=== PATIENT | female | born 1950 | race Caucasian/White ===

== ENCOUNTER 2019-06-28 15:32 | Observation (INO) ==
[2019-06-28] MEDS ORDERED: ZOFRAN IV PRN (17:37)
[2019-06-28] MEDS ORDERED: NS 1,000 ML IV SCH (17:45)
[2019-06-28 18:24] LABS: BASO# 0.02 X1000 (0.0-0.2); BASO% 0.3 % (0.0-0.8); EOS# 0.07 X1000 (0.0-0.7); HEMATOCRIT 38.9 % (37.0-47.0); HEMOGLOBIN 11.9 g/dL (12.0-16.0); LYMPH# 2.09 X1000 (1.2-3.4); LYMPH% 30.4 % (20.5-51.1); MCH 25.2 PG (27-31); MCHC 30.6 g/dL (33-37); MCV 82.4 FL (81-99); MONO# 0.42 X1000 (0.11-0.59); MONO% 6.1 % (1.7-9.3); MPV 10.9 FL (7.4-10.4); NEUT# 4.27 X1000 (1.4-6.5); NEUT% 62.2 % (42.2-75.2); PLT 214 X1000 (130-400); RBC 4.72 XMIL (4.2-5.4); WBC 6.87 X1000 (4.8-10.8)
[2019-06-28 18:49] LABS: CALCIUM 9.2 mg/dL (8.8-10.2); CREATININE 1.2 mg/dL (0.5-0.9); POTASSIUM 4.2 mmol/L (3.5-5.1)
[2019-06-28] MEDS: NORVASC PO SCH (18:51)
[2019-06-28] MEDS: NS 1,000 ML IV SCH (18:52)
--- NOTE | 2019-06-28 21:25 | HISTORY AND PHYSICAL ---
CHIEF COMPLAINT: Dizziness. HISTORY OF PRESENT ILLNESS: The patient is a 68-year-old female with history of hypertension, diabetes, peripheral tear disease, hyperlipidemia, GERD, depression. She was washing clothes earlier when she had sudden onset of dizziness, followed by nausea, vomiting, diaphoresis. She did not have any shortness of breath or chest pain or palpitations. She denies fever, chills, cough, dyspnea, chest pain. Denies sick contacts. She called EMS and was brought to [facility]. On evaluation there, she was given Zofran and fluids with resolution of her symptoms. Initial evaluation there was largely unremarkable aside from minimally elevated creatinine at 1.1 with unclear baseline, and EKG with some nonspecific ST changes and prolonged QTc of 578. Troponins were negative x2. Chest x-ray and CT head were unremarkable. Urinalysis was reportedly possibly suggestive of UTI, but patient denies dysuria, lower abdominal pain, or other symptom of urinary tract infection. At [place], they discussed with Cardiology at [facility] who recommended echocardiogram, but they did not have anyone that could read an echocardiogram for the next several days, so she was transferred here for further cardiac evaluation. She is currently asymptomatic. She reports compliance with her medications, but states that this episode occurred before she took her Lantus this morning, so she did not take that. She does state that they give her insulin at [facility]. She denies any previous history of cardiac issues. She states initially at [facility],, sitting up or attempting to stand brought on her lightheadedness, but after fluid resuscitation there, that stopped. The patient has been on Celexa for approximately 5 years since the of her . States she was depressed after that, but has done well since then. The patient states she does not always eat like she is supposed to, but denies any recent significant decrease in p.o. intake or fluid loss. REVIEW OF SYSTEMS: A 12 point review of systems negative except as per history. ALLERGIES: No known drug allergies. PAST MEDICAL HISTORY: 1. Hypertension. 2. Diabetes. 3. Peripheral arterial disease. 4. Depression. 5. Hyperlipidemia. 6. GERD. SURGICAL HISTORY: 1. Kidney stone removal. 2. . 3. Tubal ligation. 4. Benign breast cyst removal. SOCIAL HISTORY: Patient denies tobacco, alcohol, or illicit drug use. FAMILY HISTORY: Father from [place]. Mother from COPD. LABS: Labs here are pending, but labs sent from [facility] are significant only for hyperglycemia with glucose in the 250s without evidence of DKA, mildly elevated creatinine at 1.1. IMAGING: Imaging here pending, but reports sent from [facility] show unremarkable chest x- ray and CT head. PHYSICAL EXAMINATION: VITAL SIGNS: Heart rate in the 80s, respiratory rates in the high teens, temperature pending. Blood pressure systolic in the 160s. GENERAL: No acute distress. HEENT: Normocephalic. Slightly dry mucous membranes. No cervical adenopathy. No JVD. CARDIOVASCULAR: Regular rate and rhythm. No murmurs noted. PULMONARY: Clear to auscultation bilaterally. ABDOMEN: Soft, nontender, nondistended. Bowel sounds positive. EXTREMITIES: Peripheral pulses intact. No clubbing, cyanosis, or edema. NEUROLOGIC: Cranial nerves grossly intact. No focal deficits identified. No dizziness when patient was sat up here. PSYCHIATRIC: Normal mood and affect. Awake, alert, oriented x3. SKIN: Warm, dry. No new appearing rashes noted. ASSESSMENT AND PLAN: 1. Dizziness, lightheadedness, prolonged QT, nonspecific ST changes on electrocardiogram. Patient with episode of dizziness. Troponin negative x2 at outside facility. We will get a 3rd troponin here. Will repeat electrocardiogram. Rhythm here is normal sinus on the monitor, but will definitely monitor on telemetry, check thyroid studies, obtain echocardiogram, and ask Cardiology to see. Given her significantly prolonged QTc, will hold her home citalopram as it sounds like she had more of a complicated grief reaction than major depression and it was several years ago; she can likely remain off of it. Recheck chest x-ray in the morning. 2. Elevated creatinine. No baseline to compare to, so uncertain if this is acute or chronic. Creatinine was only mildly elevated at 1.1. She certainly has risk factors for mild chronic kidney disease, but we will go ahead and give some gentle fluids overnight. Check urinalysis. 3. Diabetes. The patient takes Lantus 20 units daily at home. Will do Lantus 15 units and sliding scale here. Will check A1c. 4. Hyperlipidemia. Will restart patient's home statin once medications are reconciled. 5. Gastroesophageal reflux disease. Continue proton pump inhibitor. 6. Peripheral arterial disease. Continue daily aspirin. 7. Nausea and vomiting, now resolved, but continue fluids and Zofran available as needed. 8. Disposition. Will place patient in Observation, finish cardiac workup as above, let Cardiology evaluate her. If workup is largely unremarkable, may be able to be discharged tomorrow. If Cardiology finds concerning findings, then may have to stay here until Monday for stress test.
[2019-06-28] MEDS: HUMALOG SUBQ SCH (22:58)
[2019-06-28] MEDS: TYLENOL PO PRN (23:07)
[2019-06-29 05:49] LABS: URINE SOURCE CLEAN CATCH
[2019-06-29 05:55] LABS: BILIRUBIN URINE NEGATIVE (NEGATIVE); BLOOD URINE NEGATIVE (NEGATIVE); COLOR YELLOW; GLUCOSE URINE NEGATIVE (NEGATIVE); KETONE URINE NEGATIVE (NEGATIVE); LEUKOCYTES URINE MODERATE (NEGATIVE); NITRITE URINE NEGATIVE (NEGATIVE); PROTEIN URINE NEGATIVE (NEGATIVE); SP GRAVITY URINE 1.013; TURBIDITY URINE CLEAR (CLEAR); UROBILINOGEN URINE NORMAL (NORMAL)
[2019-06-29 05:56] LABS: UR EPITHELIAL CELLS <10 /HPF (<10); URINE BACTERIA NEGATIVE /HPF; URINE RBC <10 /HPF (<10); URINE WBC 20-40 /HPF (<10)
--- NOTE | 2019-06-29 06:24 | Diag Imaging Result Doc PS360 ---
EXAM: CHEST-PORTABLE HISTORY: cough TECHNIQUE: Single view COMPARISON: None. FINDINGS: Poor inspiratory effort. The heart is enlarged. Mild increased interstitial markings in the medial right base. The pleural effusions identified. IMPRESSION: Cardiac megaly with basilar infiltrates Electronically signed by Erik Reeves 06/29/2019 6:22 AM
[2019-06-29 06:30] LABS: BASO# 0.01 X1000 (0.0-0.2); BASO% 0.2 % (0.0-0.8); EOS# 0.07 X1000 (0.0-0.7); EOS% 1.2 % (0.0-10.0); HEMATOCRIT 37.5 % (37.0-47.0); HEMOGLOBIN 11.3 g/dL (12.0-16.0); LYMPH# 2.02 X1000 (1.2-3.4); LYMPH% 33.9 % (20.5-51.1); MCHC 30.1 g/dL (33-37); MONO# 0.41 X1000 (0.11-0.59); MONO% 6.9 % (1.7-9.3); MPV 11.4 FL (7.4-10.4); NEUT# 3.44 X1000 (1.4-6.5); NEUT% 57.8 % (42.2-75.2); PLT 193 X1000 (130-400); RBC 4.52 XMIL (4.2-5.4); RDW 14.1 % (11.5-14.5); WBC 5.95 X1000 (4.8-10.8)
[2019-06-29 06:33] LABS: HEMOGLOBIN A1C 7.9 % (4.8-6.0)
[2019-06-29] MEDS: NS 1,000 ML IV SCH ×2 (06:35→14:20)
[2019-06-29] MEDS: HUMALOG SUBQ SCH ×4 (06:36→21:22)
[2019-06-29] MEDS: PROTONIX PO SCH (06:36)
[2019-06-29 07:01] LABS: CALCIUM 8.7 mg/dL (8.8-10.2); CREATININE 1.1 mg/dL (0.5-0.9); POTASSIUM 4.1 mmol/L (3.5-5.1)
[2019-06-29 07:04] LABS: FREE T4 1.12 ng/dL (0.93-1.70); TSH 2.02 uIUmL (0.27-4.20)
[2019-06-29] MEDS ORDERED: PROTONIX PO SCH (09:00)
[2019-06-29] MEDS ORDERED: MOTRIN PO SCH (09:00)
[2019-06-29] MEDS ORDERED: GLUCOPHAGE XR PO SCH (09:00)
[2019-06-29] MEDS ORDERED: HYDROCHLOROTHIAZIDE PO SCH (09:00)
[2019-06-29] MEDS: NORVASC PO SCH (09:01)
[2019-06-29] MEDS: PRINIVIL PO SCH (09:01)
[2019-06-29] MEDS: ASPIRIN PO SCH (09:01)
[2019-06-29] MEDS: LANTUS INSULIN SUBQ SCH (09:02)
--- NOTE | 2019-06-29 12:48 | ECHO REPORT ---
ORDER DATE: 06/28/2019 MEASUREMENTS: Septal thickness 1.0, left ventricular internal diastolic 5.0, posterior wall thickness 0.9, left ventricular internal diameter in systole 3.4, aortic root 2.8, left atrium 3.3. SUMMARY: 1. Technically difficult study due to limited acoustic window quality. 2. Very mild sclerosis of trileaflet aortic valve demonstrated with normal aortic valve opening evident. Peak gradient across the aortic valve is less than 10 mmHg. There is trace aortic regurgitation. Mitral and tricuspid valves are without evidence of structural abnormality while pulmonic valve is not well demonstrated. There is very mild mitral regurgitation and mild tricuspid regurgitation. The estimated systolic PA pressure by Doppler is 35 to 40 mmHg suggesting mild pulmonary hypertension. The aortic root is normal in size. 3. Normal left ventricular dimensions demonstrated. Estimated left ejection fraction appears to be at least 60%. No regional wall motion abnormalities are evident. Left atrium, right atrium, right ventricle are normal size with normal right ventricular systolic function. 4. No pericardial effusion. 5. Appearance of inferior vena cava suggests normal central venous pressure. CONCLUSIONS: 1. Technically difficult study. 2. Very mild aortic valve sclerosis without stenosis with trace aortic regurgitation. 3. Very mild mitral regurgitation. 4. Mild tricuspid regurgitation with mild pulmonary hypertension by Doppler. 5. Normal left ventricular systolic function without wall motion abnormality evident. cc: Ryan Plasencia MD
[2019-06-29] MEDS: LOVENOX SUBQ SCH (13:44)
[2019-06-29] MEDS: LOPRESSOR PO SCH ×2 (13:44→20:12)
--- NOTE | 2019-06-29 15:19 | PROGRESS NOTE ---
DATE: 06/29/2019 SUBJECTIVE: The patient notes that her dizziness has improved, in fact stating that she is feeling well. PHYSICAL EXAMINATION: Temperature 97.9, pulse 79, respiratory rate 18, BP 142/69.General: Patient is awake, alert. She is in no distress. She notes that she was able to ambulate yesterday [*]. HEENT: Normocephalic. Neck: Supple. Cardiovascular: Regular rate and rhythm. No murmurs. Chest: Clear. Abdomen: Soft. Neuro: Moves all extremities. ASSESSMENT: 1. Dizziness, appears resolved. 2. Diabetes with an A1c of 7.9. 3. Others. PLAN: We will continue patient in the hospital today. Cardiology was consulted. We will allow them to eval and if okay, will discharge her home. cc: Oniel Snyder MD
--- NOTE | 2019-06-29 16:53 | CONSULTATION ---
DATE OF CONSULTATION: 06/29/2019 IMPRESSION: 1. Episode of near syncope in diabetic with markedly abnormal ECG suspicious for significant coronary obstructive lesions in left anterior descending coronary. Consider unstable angina. 2. Exertional fatigue possibly angina equivalent. 3. Hypertension for approximately 10 years. 4. Type 2 diabetes mellitus requiring insulin for control. 5. Peripheral vascular disease. 6. Hyperlipidemia. 7. Depression. RECOMMENDATIONS: 1. Initiate beta lucretia. 2. Continue aspirin daily. 3. Add Lovenox 1 mg/kg subcutaneously q.12. 4. Follow up echocardiography. 5. Intensify statin therapy by switching to atorvastatin 40 mg. 6. Moved to PVC unit. 7. Given clinical presentation with strikingly abnormal ECG suspicious for proximal left anterior descending stenosis, favor definitive evaluation with cardiac catheterization, selective coronary angiography. The rationale for this approach and the potential hazards were discussed with the patient and she wished to proceed. Patient also made aware that she may require angioplasty/stenting which would require transfer to [facility] or other interventional level facility. HISTORY: This 68-year-old white female with past history of hypertension, type 2 diabetes mellitus requiring insulin for control, peripheral vascular disease, hyperlipidemia, and depression was admitted on transfer from [facility] in [place] for further evaluation of near syncopal episode and strikingly abnormal ECG. She relates that yesterday morning around 10:30 she was loading the washing machine in a utility building near her house. She turned to go back in house and suddenly became lightheaded/dizzy. She struggled to get back to her porch and sat down on the porch swing. She subsequently had vomiting and felt sweaty all over. Symptoms lasted perhaps 10 minutes or so and resolved spontaneously. She denies any chest pain or palpitations. She was taken to emergency room in [place] and admitted for evaluation. ECG was strikingly abnormal and actually became more abnormal overnight with anterolateral ST-T changes. Q-T interval is prolonged. However serial cardiac enzymes reported negative. She was subsequently transferred here for further evaluation as there were no beds available in [place]. She denies chest pain, but relates she has had unusual tendency for fatigue with physical activity. There has been no orthopnea or palpitations. She never really passed completely out. PAST MEDICAL HISTORY: 1. Hypertension for approximately 10 years. 2. Type 2 diabetes mellitus requiring insulin for control. 3. Peripheral vascular disease. 4. Obesity. 5. Hyperlipidemia. 6. Depression. 7. Gastroesophageal reflux disease. PAST SURGICAL HISTORY: Includes previous removal of kidney stone, section, tubal ligation, and removal of benign breast cyst. ALLERGIES: She has no known drug allergies. SOCIAL HISTORY: She is a nonsmoker. She does not use alcohol. FAMILY HISTORY: Is positive for coronary disease. REVIEW OF SYSTEMS: Pulmonary: Noncontributory beyond history of present illness. Gastrointestinal: Noncontributory beyond history of present illness. Constitutional: Negative. Remainder review of systems negative/noncontributory beyond history present illness with 14 total systems reviewed. PHYSICAL EXAMINATION: Reveals an obese, older white female in no distress on room air.Vital signs: Blood pressure 128/55, heart rate 69, oxygen saturation 99% on room air. HEENT: Extraocular movements intact. Mucous membranes moist. Neck: Supple without jugular venous distention. There are no carotid bruits. Chest: Clear to auscultation. Cardiac: Reveals a regular rate and rhythm without appreciable murmur or gallop. Abdomen: Soft. Bowel sounds are normal. Extremities: Without edema. Neurologic: Reveals her to be alert and fully oriented. Speech is fluent. She moves all 4 extremities equally well. Skin: Warm, dry. Psych: Reveals mood to be appropriate. DATA: Initial 12 lead EKG demonstrates sinus rhythm and anterolateral ST and T-wave abnormality, consider anterolateral ischemia. Followup ECG demonstrates sinus rhythm and more striking anterolateral ST and T-wave abnormality with significant QT interval prolongation. Consider anterolateral ischemia. LABORATORY DATA: Includes white blood cell count 5.95, hematocrit 37.5, hemoglobin 11.3, platelet count 193,000. Sodium 137, potassium 4.1, chloride 101, carbon dioxide 23, BUN 21, creatinine 1.1, glucose 171, troponin T less than 0.01. TSH 2.02, free T4 1.12. cc: Ryan Plasencia MD
--- NOTE | 2019-06-29 17:36 | EKG Report ---
Test Performed on : 06/29/2019 1:28:39 PM Test Reason : near syncope Blood Pressure : / mmHG Vent. Rate : 081 BPM Atrial Rate : 081 BPM P-R Int : 146 ms QRS Dur : 104 ms QT Int : 486 ms P-R-T Axes : 061 100 152 degrees QTc Int : 564 ms Critical Test Result: Long QTc Normal sinus rhythm. Rightward axis ST & T wave abnormality, consider anterolateral ischemia Prolonged QT Abnormal ECG When compared with ECG of 29-JUN-2019 06:38, (Unconfirmed) premature ventricular complexes. are no longer present QT has shortened Unconfirmed Result
--- NOTE | 2019-06-29 17:37 | EKG Report ---
Test Performed on : 06/29/2019 06:38:57 AM Test Reason : dizziness Blood Pressure : / mmHG Vent. Rate : 076 BPM Atrial Rate : 076 BPM P-R Int : 152 ms QRS Dur : 110 ms QT Int : 566 ms P-R-T Axes : 062 106 155 degrees QTc Int : 636 ms Critical Test Result: Long QTc Sinus rhythm. with occasional premature ventricular complexes. Rightward axis ST & Marked T wave abnormality, consider anterolateral ischemia Prolonged QT Abnormal ECG No previous ECGs available Unconfirmed Result
[2019-06-29] MEDS: LIPITOR PO SCH (20:12)
[2019-06-29] MEDS ORDERED: PRAVACHOL PO SCH (21:00)
[2019-06-29] MEDS ORDERED: CELEXA PO SCH (21:00)
[2019-06-29] MEDS ORDERED: LANTUS INSULIN SUBQ SCH ×2 (21:00)
[2019-06-29] MEDS: CELEXA PO SCH (21:22)
[2019-06-30] MEDS: NS 1,000 ML IV SCH ×4 (00:22→15:53)
[2019-06-30] MEDS: LOVENOX SUBQ SCH ×2 (00:22→13:20)
[2019-06-30] MEDS: PROTONIX PO SCH (06:41)
[2019-06-30] MEDS: NORVASC PO SCH (09:05)
[2019-06-30] MEDS: LANTUS INSULIN SUBQ SCH (09:05)
[2019-06-30] MEDS: ASPIRIN PO SCH (09:05)
[2019-06-30] MEDS: LOPRESSOR PO SCH ×2 (09:05→21:48)
[2019-06-30] MEDS: PRINIVIL PO SCH (09:05)
[2019-06-30] MEDS: HUMALOG SUBQ SCH ×4 (09:06→21:49)
[2019-06-30 12:14] LABS: INR 1.04; PROTIME 13.7 Seconds (11.0-16.0)
--- NOTE | 2019-06-30 15:13 | PROGRESS NOTE ---
DATE: 06/30/2019 SUBJECTIVE: Patient continues without chest discomfort or dyspnea. There has been no fatigue or lightheadedness. OBJECTIVE: Vitals: Blood pressure 146/65, heart rate 62, oxygen saturation 96% on room air. Neck: There is no significant jugular venous distention. Chest: Clear to auscultation. Cardiac: Reveals a regular rate and rhythm without appreciable murmur or gallop. Extremities: There is no evidence of peripheral edema. LABORATORY DATA: Includes a pro-time 13.7, INR 1.04, PTT 30.5. IMPRESSION: 1. Recent near-syncope in diabetic with markedly abnormal ECG suspicious for significant coronary obstructive lesions in the left anterior descending coronary. Consider the possibility of associated arrhythmias such as polymorphic ventricular tachycardia or transient global left ventricular dysfunction related to multivessel coronary atherosclerosis. 2. Exertional fatigue, possible anginal equivalent. 3. Hypertension for approximately 10 years. 4. Type 2 diabetes mellitus for approximately 10 years requiring insulin for control. 5. Peripheral vascular disease. 6. Hyperlipidemia. 7. Depression. RECOMMENDATIONS: 1. Continue beta lucretia. 2. Continue aspirin daily. 3. Favor definitive evaluation of patient's clinical presentation with left heart catheterization and selective coronary angiography. The rationale for this approach and potential hazards were discussed with the patient, and she wished to proceed. Possible need for transfer to [facility] in the event coronary angioplasty/stenting is needed was also discussed with the patient. She is very comfortable going ahead with procedure here at [facility]. cc: Ryan Plasencia MD
--- NOTE | 2019-06-30 17:57 | PROGRESS NOTE ---
DATE: 06/30/2019 SUBJECTIVE: Patient notes that her dizziness has improved. Overall, she states she is feeling fine. Denies any chest pain or palpitations. PHYSICAL EXAMINATION: Vital Signs: Reviewed. Temperature 97.9 degrees pulse 65, respiratory rate 18, BP 138/74. General: Patient is pleasant, in no distress, sitting in the bed, talking with the family. HEENT: Normocephalic. Neck: Supple. Cardiovascular: Regular rate. Chest: Clear, nonlabored. Abdomen: Soft, nondistended. Extremities: Moves all extremities. Neurologic: No changes. ASSESSMENT: 1. Hypertension. 2. Peripheral vascular disease. 3. Near syncope. 4. Diabetes with poor home control with an A1c of 7.9. PLAN: Patient has been started on beta lucretia and Lovenox per Cardiology. The plan is to transfer her to [facility] when bed is available for left heart catheterization to evaluate her dysrhythmia and syncope. cc: Oniel Snyder MD
[2019-06-30] MEDS: LIPITOR PO SCH (21:48)
[2019-06-30] MEDS: CELEXA PO SCH (21:48)
[2019-06-30] MEDS: TYLENOL PO PRN (21:56)
[2019-07-01] MEDS: NS 1,000 ML IV SCH ×3 (01:23→13:16)
[2019-07-01] MEDS: PROTONIX PO SCH ×2 (05:11→07:05)
[2019-07-01] MEDS: HUMALOG SUBQ SCH ×3 (06:36→16:43)
[2019-07-01] MEDS: PRINIVIL PO SCH (08:33)
[2019-07-01] MEDS: ASPIRIN PO SCH (08:33)
[2019-07-01] MEDS: LOPRESSOR PO SCH (08:33)
[2019-07-01] MEDS: NORVASC PO SCH (08:33)
[2019-07-01] MEDS: LANTUS INSULIN SUBQ SCH (10:42)
--- NOTE | 2019-07-01 14:06 | PROGRESS NOTE ---
DATE: 07/01/2019 SUBJECTIVE: The patient has no complaints. No dizziness. No chest pain. No shortness of breath. PHYSICAL EXAMINATION: Temperature 98.7, pulse 71, respiratory rate 25, BP 132/63. General: The patient is pleasant. She is in no respiratory distress. HEENT: Normocephalic. Neck: Supple. Cardiovascular: Regular rate. No murmurs. Chest: Clear and unlabored. Abdomen: Soft, nondistended. Extremities: Moves all extremities. ASSESSMENT: 1. Dizziness. 2. Diabetes with poor home control, with an A1c of 7.9. 3. Hypertension. 4. Peripheral vascular disease. 5. Abnormal electrocardiogram. PLAN: At this point, I believe cardiology is planning on doing a left heart catheterization here and if abnormal, transferring to [facility]. She does have left carotid stenosis and this will need to be followed up as an outpatient. Unclear as to if this caused any of her dizziness but it certainly did not affect her EKG. cc: Oniel Snyder MD
[2019-07-01] MEDS ORDERED: HEPARIN 1000 UNITS/NS 2,000 UNIT/1,000 ML IV.SOLN ONE (14:23)
[2019-07-01] MEDS ORDERED: XYLOCAINE 1% ONE (14:23)
[2019-07-01] MEDS ORDERED: VERSED ONE (14:49)
[2019-07-01] MEDS ORDERED: MORPHINE ONE (14:50)
[2019-07-01] MEDS ORDERED: NS 1,000 ML ONE (15:31)
[2019-07-01 16:06] VITALS: BP 152/72
--- NOTE | 2019-07-01 17:21 | Carotid Study ---
DATE: 07/01/2019 REFERRING PHYSICIAN: Oniel Snyder MD INTERPRETING PHYSICIAN: Delroy Zafar MD DENIER CONTROL OPERATOR: Mary Sevilla RVT REASON FOR STUDY: The patient has near-syncope. FINDINGS: The velocities are noted. The right internal common carotid artery shows 0.9; the left is 4.6. The percent stenosis is 0 to 39% on the right and probably 60% to 79% on the left. There is plaque noted in both bulbs. INTERPRETATION: Plaque noted in both bulbs. The left side stenosis is of hemodynamic consequence, probably in the 75% range. There is antegrade vertebral flow bilaterally. cc: MD Ryan Baltazar MD
--- NOTE | 2019-07-01 18:51 | CARDIAC CATH REPORT ---
PROCEDURE NAME: - PROCEDURE PERFORMED: Left heart catheterization with selective coronary geography and left ventriculography. INDICATIONS: 68-year-old white female with history of diabetes mellitus requiring insulin, hypertension, hyperlipidemia, peripheral vascular disease, admitted with near syncope and exertional fatigue. ECG strikingly abnormal suggesting unstable angina. ENTRY SITE: Right femoral artery. CATHETERS USED: 5-Ugandan JL4, 3DRC, and angled pigtail. TECHNIQUE: After intravenous sedation with Versed and morphine, local anesthesia lidocaine was applied over right femoral artery. Arterial access was established with placement of a 5-Ugandan sheath in right femoral artery using modified Seldinger technique. Selective coronary angiography was performed followed by left heart catheterization and left ventriculography. Upon completion of procedure, arterial sheath was removed from right femoral artery and hemostasis facilitated with manual pressure. Patient tolerated the procedure without apparent complications. FINDINGS: Hemodynamics: Aortic pressure 163/61 with a mean 98. Left ventricular pressure 159 over EDP of 23. COMMENTS: On hemodynamics there is no significant gradient across aortic valve demonstrated on pullback for left ventricle. ANGIOGRAPHY: 1. Left ventriculogram. Left ventricle is upper normal in size with thinning and akinesis of the basal and midinferior wall on JOHNSON projection. Estimated left ejection fraction is approximately 40%. There is mild to moderate mitral regurgitation. 2. Left main coronary. Left main coronary is free of significant coronary stenosis. 3. Left anterior descending coronary. Left anterior descending coronary demonstrates a long segment of moderate (40-50%) narrowing proximally. Just after first diagonal branch is a severe (80%) focal stenosis. The second diagonal branch demonstrates a very severe (90%) ostial stenosis. Remainder of left anterior descending coronary demonstrates mild diffuse atherosclerosis. 4. Left circumflex. Left circumflex [*] demonstrates a moderate (50%) eccentric plaque very proximally. The mid right coronary demonstrates a severe (80-90%) focal stenosis. Thereafter rises obtuse marginal which demonstrates diffuse coronary atherosclerosis and a severe (99%) stenosis at the midportion of the obtuse marginal. The continuation left circumflex coronary demonstrates a severe (greater 95%) segmental stenosis and thereafter left circumflex artery demonstrates severe diffuse atherosclerosis. 5. Right coronary. The dominant right coronary demonstrates moderate to severe (70%) stenosis very proximally and shortly thereafter demonstrates subtotal stenosis in a segmental fashion. Thereafter the left [*] a segment of subtotal stenosis. Remainder of the right coronary artery and its branches demonstrate severe disease coronary atherosclerosis. CONCLUSIONS: 1. Moderately diminished left ventricular systolic function with evidence of previous inferior infarction. 2. Mild to moderate mitral regurgitation. 3. Right dominant coronary anatomy with severe multivessel coronary atherosclerosis as described including severe stenosis in left anterior descending coronary artery proximal 1/3, severe diffuse atherosclerosis in left circumflex coronary, subtotal stenosis proximal right coronary artery and severe diffuse atherosclerosis and the remainder of the right coronary branches. RECOMMENDATIONS: Recommend CV surgery consultation to consider merits of coronary bypass grafting. cc: Ryan Plasencia MD
== END 2019-07-01 16:50 | disposition short-term general hospital (02) ==
LOC: DIRADM 15:32 → INTOOBSV 15:32 → SUATTDRO 15:32 → EDIPHOLD 17:19 → 4N 20:30 → 2N 06-29 14:02
PROVIDERS: ATTEND Family Medicine